=== PATIENT | male | born 1985 | race Asian ===

== ENCOUNTER 2018-11-04 08:31 | Emergency (ER) | payer OTHER, SELFPAY ==
[2018-11-04 08:32] VITALS: BP 124/72; PULSE 72; RESP 16; TEMP 36.8; O2SAT 97; BMI 27.3
--- NOTE | 2018-11-04 09:36 | ED_ITS ---
HPI - Psych General Chief Complaint: Psychiatric Symptoms Stated Complaint: DEPRESSION,BREAK DOWN Time Seen by Provider: 11/04/18 08:57 Source: patient Mode of arrival: ambulatory Limitations: no limitations History of Present Illness HPI Narrative: Patient is a 33-year-old male who presents with anxiety. He see an anxiety attack yesterday in the history of depression. He does have a appointment with a doctor on Friday. However he feels like he had a panic attack in eat something to keep him calm. He takes trazodone at night to sleep. He also feels like if he goes to work he will be able to deal very well. He denies any suicidal or homicidal ideations. He states that he also used to drink alcohol at night to help him sleep. He is currently going through rehab but does not feel like he needs to be there as he was only using it to sleep. Related Data Previous Rx's Medication Instructions Recorded hydroxyzine HCl 25 mg PO TID-QID PRN #20 tab 11/04/18 Allergies Allergy/AdvReac Type Severity Reaction Status Date / Time No Known Drug Allergies Allergy Verified 11/04/18 08:37 Review of Systems Review of Systems GENERAL: Denies chills,fever HEENT: Denies throat pain RESPIRATORY: Denies dyspnea, cough, wheezing CARDIOVASCULAR: Denies chest pain, palpitations GASTROINTESTINAL: Denies nausea, vomiting MUSCULOSKELETAL: Denies extremity pain, injury SKIN: No rash, no laceration, no pruritus NEUROLOGIC: Denies weakness, dizziness, headache, numbness PSYCHIATRIC: See HPI 8 point review of systems is negative except for those stated above and HPI PFSH Medical History Anxiety (Acute) Insomnia (Acute) Social History Smoking Status: Never smoker Social History Smoking Status: Never smoker alcohol intake: current substance use type: does not use Exam Initial Vital Signs Initial Vital Signs: Vital Signs Temperature 98.2 F 11/04/18 08:32 Pulse Rate 72 11/04/18 08:32 Respiratory Rate 16 11/04/18 08:32 Blood Pressure 124/72 11/04/18 08:32 Pulse Oximetry 97 11/04/18 08:32 GENERAL: Well-appearing, well-nourished and in no acute distress. HEENT: Head atraumatic,EOMI, pupils reactive, face symmetric, moist mucous membranes CARDIOVASCULAR: Regular rate and rhythm without murmurs, rubs or gallops. RESPIRATORY: Breath sounds equal bilaterally, no wheezes rales or rhonchi. EXTREMITIES: Normal range of motion, no clubbing or edema. Neurovascularly intact NEUROLOGICAL: Alert and oriented x4.Normal gait and speech. SKIN: Warm, dry, no laceration, no petechiae, no rashes or lesions. Psych Appearance: grossly normal Mental Status: mental status grossly normal Speech and Movement: speech and movement normal Mood: congruent mood Affect: normal affect Attitude: cooperative Thought Process: normal Thought Content: normal Judgment: judgment good Course Vital Signs - 8 hr 11/04/18 08:32 Temperature 98.2 F Pulse Rate 72 Respiratory Rate 16 Blood Pressure 124/72 Pulse Oximetry 97 MDM - Psych Lab Data Urine Dip Bedside Urine Glucose Negative Bedside Urine Bilirubin - Negative Bedside Urine Ketone - Negative Urine Specific [place] 1.015 Bedside Urine Occult Blood - Negative Bedside Urine pH 6.0 Bedside Urine Protein - Negative Bedside Urine Urobilinogen - Negative Bedside Urine Nitrite - Negative Bedside Urine Leukocytes - Negative Esterase MDM Narrative Medical decision making narrative: Discussed with patient. He just does not feel like is able to work at that this time that is contributing to his anxiety. I will give him some hydroxyzine to help with the anxiety and off work until he can see his doctor and therapist on Friday. Discharge Plan Departure Patient Disposition: Home Clinical Impression: Acute anxiety Discharge Date/Time: 11/04/18 09:54 Interventions: ED Discharge Assessment Last Done: 11/04/18 09:53 Instructions: DI for Anxiety -- Adult Activity Restrictions/Additional Instructions: *You have been diagnosed with anxiety *What to do: Recommend following up with therapist or counselor *Continue to take medications as directed Hydroxizine 25-50mg every 6-8 hours if needed for anxiety *Follow up with your primary care provider in 2-3 days *Return to ER if you should have suicidal ideadions, depression worsening anxiety or any new, worsening or concerning symptoms Prescriptions: New hydroxyzine HCl 25 mg tablet 25 mg PO TID-QID PRN (Reason: anxiety) Qty: 20 RF: 0 Stand Alone Forms: Work Release Note
== END 2018-11-04 09:54 | disposition home or self-care (01) ==
PROVIDERS: Emergency Provider Emergency Medicine
DX: F41.9 Anxiety disorder, unspecified (principal)
CPT/HCPCS: 81003; 99282; 99283

== ENCOUNTER 2019-01-28 14:47 | Emergency (ER) | payer OTHER, SELFPAY ==
[2019-01-28 14:51] VITALS: BP 134/85; PULSE 88; RESP 18; TEMP 36.8; O2SAT 96; BMI 27.3
[2019-01-28 15:44] VITALS: BP 129/79; PULSE 78; RESP 17; O2SAT 99
--- NOTE | 2019-01-28 19:09 | ED_ITS ---
HPI - Medical Clearance <DEJAN Umana - Last Filed: 01/28/19 19:09> General Chief complaint: Medical Clearance Stated complaint: psych eval Time Seen by Provider: 01/28/19 14:58 Source: patient Mode of arrival: ambulatory Limitations: no limitations History of Present Illness HPI Narrative: The patient is a 33-year-old male nonsmoker with history of depression who presents with a chief complaint of requiring medication refill. He states he normally takes sertraline 50 mg p.o. daily and has a appointment with a psychiatrist on the of this month. However he is out of his medication and is unable to obtain refills for the 5 days until his appointment. He currently denies SI HI or thoughts of harming himself or others. He states his anxiety is well controlled. He states his depression is well controlled on his medications. He is afraid to run out of his medications. Of note he also asked me to sign his paperwork for a therapy dog. Previous Rx's Medication Instructions Recorded hydroxyzine HCl 25 mg PO TID-QID PRN #20 tab 11/04/18 sertraline 50 mg PO DAILY #7 tab 01/28/19 Allergies Allergy/AdvReac Type Severity Reaction Status Date / Time No Known Drug Allergies Allergy Verified 01/28/19 14:51 Review of Systems <DEJAN Umana - Last Filed: 01/28/19 19:09> Review of Systems GENERAL: Denies chills, fatigue, malaise, fever, sweats. HEENT: Denies sinus pain, ear pain, sore throat, difficulty swallowing, dizziness. RESPIRATORY: Denies dyspnea, cough, wheezing, hemoptysis, sputum. CARDIOVASCULAR: Denies chest pain, palpitations, orthopnea, edema, GASTROINTESTINAL: Denies nausea, vomiting, abdominal pain, diarrhea, constipation, melena. : Denies dysuria, frequency, incontinence, hematuria, urinary retention. MUSCULOSKELETAL: denies weakness, joint pain, or bony pain SKIN: Denies rash, skin lesions, or other NEUROLOGIC: Denies weakness, headache, numbness, change in speech, confusion, seizures, incoordination. PSYCHIATRIC: See HPI 12 point review of systems is negative except for those stated above PFSH <DEJAN Umana - Last Filed: 01/28/19 19:09> Medical History Anxiety (Acute) Insomnia (Acute) Social History (Updated 11/04/18 @ 16:36 by Adrianne Isbell DO) Smoking Status: Never smoker alcohol intake: current substance use type: does not use Social History Smoking Status: Never smoker alcohol intake: current substance use type: does not use Exam <DEJAN Umana - Last Filed: 01/28/19 19:09> Narrative Exam Narrative: GENERAL: This is a well-nourished, well-developed patient, in no acute distress HEAD: Atraumatic. Normocephalic. No temporal or scalp tenderness. EYES: Pupils equal round and reactive. Extraocular motions intact. No scleral icterus. No injection or drainage. NECK: Trachea midline. No JVD or lymphadenopathy. Supple, nontender, no meningeal signs. CARDIOVASCULAR: Regular rate and rhythm RESPIRATORY: No increased respiratory effort. No accessory muscle use. NEURO: AOx3. Denies SI HI. No suicidal thoughts. SKIN: No rash or erythema. Initial Vital Signs Initial Vital Signs: Vital Signs Temperature 98.3 F 01/28/19 14:51 Pulse Rate 88 01/28/19 14:51 Respiratory Rate 18 01/28/19 14:51 Blood Pressure 134/85 01/28/19 14:51 Pulse Oximetry 96 01/28/19 14:51 <Luciana Pierce MD - Last Filed: 02/02/19 14:05> Initial Vital Signs Initial Vital Signs: Vital Signs Temperature 98.3 F 01/28/19 14:51 Pulse Rate 88 01/28/19 14:51 Respiratory Rate 18 01/28/19 14:51 Blood Pressure 134/85 01/28/19 14:51 Pulse Oximetry 96 01/28/19 14:51 MDM - Medical Clearance <DEJAN Umana - Last Filed: 01/28/19 19:09> MDM Narrative Medical decision making narrative: The patient is a 33-year-old male who presents with chief complaint of requesting medication refill. Given that he denies any symptoms at this point time I am comfortable giving a prescription for the next few days in order to get him through to his psychiatrist visit. I did declined to sign the paperwork for his therapy dog. I encouraged him to follow up with with his psychiatrist as well as contact [facility] in order to elicit some services for his therapy dog request. Discussed going back to emergency department for any acute concerns such as chest pain shortness of breath thoughts of hurting himself or other people. Discharge Plan Departure Patient Disposition: Home Clinical Impression: Encounter for medication refill Discharge Date/Time: 01/28/19 15:44 Interventions: ED Discharge Assessment Last Done: 01/28/19 15:44 Instructions: DI for Safely Taking and Storing Medications -- Adults Activity Restrictions/Additional Instructions: I have given you a refill for your sertraline. Please follow up with her psychiatrist as scheduled. You can contact the [facility] bed [phone] to see if there is anybody who can help with your therapy dog request. Please come back to the emergency department for any acute concerns and such as thoughts of hurting herself or others. Prescriptions: New sertraline 50 mg tablet 50 mg PO DAILY Qty: 7 RF: 0 No Action hydroxyzine HCl 25 mg tablet 25 mg PO TID-QID PRN (Reason: anxiety) Qty: 20 RF: 0 Referrals: [facility] [Provider Group]
== END 2019-01-28 15:44 | disposition home or self-care (01) ==
PROVIDERS: Emergency Provider Nurse Practitioner Family
DX: Z76.0 Encounter for issue of repeat prescription (principal)
CPT/HCPCS: 99281; 99282